=== PATIENT | female | born 1950 | race Caucasian/White ===

== ENCOUNTER 2016-09-07 01:55 | Inpatient (IN) | payer MEDICARE ==
[2016-09-07] VITALS (10 sets, daily range): BP systolic 102–147; BP diastolic 61–80; PULSE 79–104; RESP 16–20; TEMP 96.5–97.8; O2SAT 93–99
[~2016-09-07] VITALS: Ht 170.2 cm; Wt 70.0 kg
[~2016-09-07 01:55] MED LIST: CARI350T19 PO; CARV6.252 PO; CETI10 PO; EZET10 PO; FLEC100 PO; FLON0.053 EACH NARE; GABA300C3 PO; HYDR-3535 PO; HYZA100T4 PO; MECL25 PO; MECL25CH PO; OMEP40CA2; ONDA8TAB8; OXYB5TAB PO; VICT18IN SQ; VITA10002 PO; VITA20003 PO; WARF5; ZOLP10TA3 PO
[2016-09-07] MEDS ORDERED: SODIUM CHLORIDE 0.9% FLUSH 10 ML FLUSH IVF PRN (02:15)
--- NOTE | 2016-09-07 03:06 | RADRPT ---
EXAM DATE/TIME: 09/07/2016 02:15 [place] COMPARISON: CHEST SINGLE AP, April 29, 2014, 9:06. EXTERNAL COMPARISON : [facility] INDICATIONS : Chest pain. MEDICAL HISTORY : Carcinoma, lung. A-fib. SURGICAL HISTORY : None. ENCOUNTER: Initial ACUITY: 2 days PAIN SCORE: 7/10 LOCATION: Bilateral chest FINDINGS: A single view of the chest demonstrates left upper lobe density, unchanged. Blunting of the right cos tophrenic angle likely small pleural effusion and basilar atelectasis. Heart mildly enlarged. The ca rdiomediastinal contours are unremarkable. Osseous structures are intact. CONCLUSION: 1. Stable left upper lobe density. 2. Small right pleural effusion and probable right basal atelectasis. Bartolo Monroe MD on September 07, 2016 at 3:03 Board Certified Radiologist. This report was verified electronically.
[2016-09-07 03:24] LABS: AUTOMATED NEUTROPHIL # 1.6 TH/MM3 (1.8-7.7); BASOPHIL % 1.5 % (0.0-2.0); EOSINOPHIL # 0.1 TH/MM3 (0-0.4); EOSINOPHIL % 3.1 % (0.0-4.0); HEMATOCRIT 39.9 % (35.0-46.0); HEMO FLAGS DIFF FINAL; LYMPH % 25.6 % (9.0-44.0); LYMPHOCYTE # 0.8 TH/MM3 (1.0-4.8); MEAN CELL VOLUME 96.7 FL (80.0-100.0); MEAN CORPUSCULAR HEMOGLOBIN 33.1 PG (27.0-34.0); MEAN CORPUSCULAR HGB CONC 34.2 % (32.0-36.0); MONO % 16.5 % (0.0-8.0); NEUT % 53.3 % (16.0-70.0); PLATELET COUNT 178 TH/MM3 (150-450); RED BLOOD COUNT 4.12 MIL/MM3 (4.00-5.30); RED CELL DISTRIBUTION WIDTH 12.9 % (11.6-17.2); WHITE BLOOD COUNT 3.1 TH/MM3 (4.0-11.0)
[2016-09-07 03:33] LABS: APTT (PATIENT) 35.6 SEC (24.3-30.1); INTERNATIONAL NORMALIZED RATIO 1.7 RATIO; PROTHROMBIN TIME - PATIENT 19.2 SEC (9.8-11.6)
[2016-09-07 04:05] LABS: BICARBONATE 27.6 MEQ/L (21.0-32.0); MAGNESIUM 1.7 MG/DL (1.5-2.5); POTASSIUM 4.8 MEQ/L (3.5-5.1)
[2016-09-07 04:19] LABS: CKMB 6.8 NG/ML (0.5-3.6)
[2016-09-07] MEDS ORDERED: ENOXAPARIN SODIUM 80 MG/0.8 ML SYRINGE SQ ONE (04:45)
[2016-09-07] MEDS ORDERED: NITROGLYCERIN 2% OINT 1 GM PACKET TOP ONE (04:45)
[2016-09-07] MEDS ORDERED: FLEC100T PO (05:46)
[2016-09-07] MEDS ORDERED: WARF-23 PO (05:46)
[2016-09-07] MEDS ORDERED: OMEP40CA2 PO (05:46)
[2016-09-07] MEDS ORDERED: LOSA100T3 PO (05:46)
[2016-09-07] MEDS ORDERED: MONT10TA4 PO (05:46)
[2016-09-07] MEDS ORDERED: OXYB5TAB10 PO (05:46)
[2016-09-07] MEDS ORDERED: GABA300C5 PO (05:46)
[2016-09-07] MEDS ORDERED: CARI350T20 PO (05:46)
[2016-09-07] MEDS ORDERED: CARV6.252 PO (05:46)
[2016-09-07] MEDS ORDERED: ATOR10TA15 PO (05:46)
[2016-09-07] MEDS ORDERED: CETI10 PO (05:46)
[2016-09-07] MEDS ORDERED: VICT18IN SQ (05:46)
[2016-09-07] MEDS ORDERED: OXYC1TAB36 PO (05:46)
[2016-09-07] MEDS ORDERED: FLUT50SP EACH NARE (05:46)
[2016-09-07] MEDS ORDERED: ZOLP10TA3 PO (05:46)
--- NOTE | 2016-09-07 05:47 | PD ---
HPI Chief Complaint: Chest Pain Time Seen by Provider: 02:12 Travel History International Travel<30 days: No Contact w/Intl Traveler<30days: No Traveled to known affect area: No History of Present Illness HPI This is a 66-year-old female with a history of paroxysmal A. fib, COPD, lung cancer, GERD, degenerative disc disease, cardiomyopathy, pleural effusion, who presents today with complaints of chest pain on and off 2 days. The patient reports the pain as sharp and pressure-like. She states it's worse when laying flat. She states that there is some pleuritic nature to the discomfort. There is no reported fevers, chills. Patient denies any chest pain at the time of my examination and states it's worse at night compared to the day. PFSH Past Medical History Atrial Fibrillation: Yes Blood Disorders: No Anxiety: No Depression: No Heart Rhythm Problems: Yes (Hx AFIB) Cancer: Yes (RIGHT / LEFT LUNG - 2002/2012) Cardiac Catheterization: Yes Cardiovascular Problems: Yes (Hx AFIB) High Cholesterol: Yes Chemotherapy: Yes Chest Pain: Yes Congestive Heart Failure: No COPD: Yes (Emphysema) Diabetes: No Diminished Hearing: No Endocrine: No Gastrointestinal Disorders: Yes (REFLUX) Genitourinary: No Hepatitis: No Hiatal Hernia: No Heparin Induced Thrombocytopen: No Hypertension: Yes Immune Disorder: No Implanted Vascular Access Dvce: No Medical other: No Musculoskeletal: Yes (DEGENERATIVE DISK DISEASE, back surgery 5 rods. ) Neurologic: No Psychiatric: No Reproductive: No Respiratory: Yes Immunizations Current: Yes Radiation Therapy: Yes Sleep Apnea: No Thyroid Disease: No Menopausal: Yes : 6 Para: 5 Tubal Ligation: Yes Past Surgical History Abdominal Surgery: Yes (5 C-SECTIONS) AICD: No Cardiac Surgery: No Section: Yes (X 5) Coronary Artery Bypass Graft: No Ear Surgery: No Endocrine Surgery: No Eye Surgery: No Genitourinary Surgery: No Gynecologic Surgery: Yes (FIBRIODS) Joint Replacement: No Neurologic Surgery: No Oral Surgery: Yes (TONSILECTOMY) Pacemaker: No Thoracic Surgery: Yes (RIGHT LOWER LOBECTOMY) Tonsillectomy: Yes Other Surgery: Yes (PORT ) Family History Family Myocardial Infarction: Yes (mother and father) Social History Alcohol Use: Yes (2-3 DRINKS PER DAY) Tobacco Use: No (QUIT 10 YEARS AGO) Substance Use: No Allergies-Medications (Allergen,Severity, Reaction): Coded Allergies: No Known Allergies (Verified , 09/07/16) Reported Meds & Prescriptions Reported Meds & Active Scripts Active Antivert (Meclizine HCl) 25 Mg Tab 25 Mg PO Q8 30 Days Reported Victoza 18 mg/3 ml Multi-Dose Pen (Liraglutide 18 mg/3 ml Multi-Dose Pen) 18 Mg/3 Ml Inj 0.2 Mg SQ DAILY Carvedilol 6.25 mg (Carvedilol) 6.25 Mg Tab 1 Tab PO BID Zetia (Ezetimibe) 10 Mg Tab 10 Mg PO DAILY Omeprazole 40 mg (Omeprazole) 40 Mg Cap Zolpidem Tartrate 10 Mg Tab 10 Mg PO HS Ondansetron Odt (Ondansetron) 8 Mg Tab Vitamin D (Cholecalciferol) 2,000 Unit Tab 2,000 Unit PO Vitamin B12 (Cyanocobalamin) 1,000 Mcg Tab 1,000 Mcg PO BID Carisoprodol 350 Mg Tab 350 Mg PO Q12H Meclizine Hcl (Meclizine HCl) 25 Mg Chw 25 Mg PO Q8H PRN Gabapentin 300 Mg Cap 300 Mg PO TID 1 PO QHS X 3 DAYS THEN 1 PO BID X 3 DAYS THEN 1 PO TID X 3 DAYS THEREAFTER Oxybutynin Chloride 5 Mg Tab 5 Mg PO BID Cetirizine Hcl 10 Mg Tab 10 Mg PO DAILY Flonase (Fluticasone Propionate (Nasal)) 0.05 % Spr 0.05 % EACH NARE DAILY PRN Hyzaar 100-12.5 (Losartan Potassium-Hct 100-12.5) 100 - Tab 1 Tab PO DAILY Lortab 10 mg/325 mg (Hydrocodone/Acetaminophen 10 mg/325 mg) 1 Tab Tab 1 Tab PO Q4 Flecainide Acetate 100 Mg Tab 100 Mg PO Q12 Coumadin (Warfarin Sod) 5 Mg Tab Review of Systems Except as stated in HPI: all other systems reviewed are Neg General / Constitutional: No: Fever, Chills HENT: No: Headaches, Lightheadedness Cardiovascular: Positive: Chest Pain or Discomfort, Irregular Rhythm (history of paroxysmal A. fib), No: Palpitations, Dyspnea on exertion Respiratory: Positive: Cough, Orthopnea, No: Shortness of Breath Gastrointestinal: No: Nausea, Vomiting, Diarrhea Musculoskeletal: No: Myalgias, Arthralgias, Weakness Neurologic: No: Weakness, Dizziness Physical Exam Narrative GENERAL: Well-nourished, well-developed patient. SKIN: Focused skin assessment warm/dry. HEAD: Normocephalic/atraumatic. EYES: No scleral icterus. No injection or drainage. NECK: Supple, trachea midline. No JVD . CARDIOVASCULAR: Regular rate and rhythm without murmurs, gallops, or rubs. RESPIRATORY: Slightly decreased breath sounds at the bases, worse on the right than on the left. No wheezes or Rales. GASTROINTESTINAL: Abdomen soft, non-tender, nondistended. MUSCULOSKELETAL: No cyanosis, or edema. NEUROLOGICAL: Awake and alert. Cranial nerves II through XII intact. Motor grossly within normal limits. Five out of 5 muscle strength in all muscle groups. Normal speech. Data Data Last Documented VS Vital Signs Date Time Temp Pulse Resp B/P Pulse Ox O2 Delivery O2 Flow Rate FiO2 09/07/16 02:12 Room Air 09/07/16 01:58 97.6 104 20 147/74 99 Orders Electrocardiogram (09/07/16 02:12) Basic Metabolic Panel (Bmp) (09/07/16 02:12) Ckmb (Isoenzyme) Profile (09/07/16 02:12) Complete Blood Count With Diff (09/07/16 02:12) Magnesium (Mg) (09/07/16 02:12) Prothrombin Time / Inr (Pt) (09/07/16 02:12) Act Partial Throm Time (Ptt) (09/07/16 02:12) Troponin I (09/07/16 02:12) Chest, Single Ap (09/07/16 02:12) Ecg Monitoring (09/07/16 02:12) Bilateral Bp Monitoring (09/07/16 02:12) Iv Access Insert/Monitor (09/07/16 02:12) Oximetry (09/07/16 02:12) Oxygen Administration (09/07/16 02:12) Sodium Chloride 0.9% Flush (Ns Flush) (09/07/16 02:15) CKMB (09/07/16 02:23) CKMB% (09/07/16 02:23) Nitroglycerin 2% Oint (Nitroglycerin 2% (09/07/16 04:45) Enoxaparin Inj (Lovenox Inj) (09/07/16 04:45) Labs Laboratory Tests Test 09/07/16 02:23 White Blood Count 3.1 TH/MM3 Red Blood Count 4.12 MIL/MM3 Hemoglobin 13.6 GM/DL Hematocrit 39.9 % Mean Corpuscular Volume 96.7 FL Mean Corpuscular Hemoglobin 33.1 PG Mean Corpuscular Hemoglobin 34.2 % Concent Red Cell Distribution Width 12.9 % Platelet Count 178 TH/MM3 Mean Platelet Volume 7.8 FL Neutrophils (%) (Auto) 53.3 % Lymphocytes (%) (Auto) 25.6 % Monocytes (%) (Auto) 16.5 % Eosinophils (%) (Auto) 3.1 % Basophils (%) (Auto) 1.5 % Neutrophils # (Auto) 1.6 TH/MM3 Lymphocytes # (Auto) 0.8 TH/MM3 Monocytes # (Auto) 0.5 TH/MM3 Eosinophils # (Auto) 0.1 TH/MM3 Basophils # (Auto) 0.0 TH/MM3 CBC Comment DIFF FINAL Differential Comment Prothrombin Time 19.2 SEC Prothromb Time International 1.7 RATIO Ratio Activated Partial 35.6 SEC Thromboplast Time Sodium Level 133 MEQ/L Potassium Level 4.8 MEQ/L Chloride Level 96 MEQ/L Carbon Dioxide Level 27.6 MEQ/L Anion Gap 9 MEQ/L Blood Urea Nitrogen 14 MG/DL Creatinine 0.92 MG/DL Estimat Glomerular Filtration 61 ML/MIN Rate Random Glucose 94 MG/DL Calcium Level 9.1 MG/DL Magnesium Level 1.7 MG/DL Total Creatine Kinase 311 U/L Creatine Kinase MB 6.8 NG/ML Creatine Kinase MB % 2.2 % Troponin I 0.11 NG/ML [facility] Medical Decision Making Medical Screen Exam Complete: Yes Emergency Medical Condition: Yes Interpretation(s) Last 24 hours Impressions Chest X-Ray 09/07/16211 Signed Impressions: Service Date/Time: Wednesday, September 07, 2016 02:15 - CONCLUSION: 1. Stable left upper lobe density. 2. Small right pleural effusion and probable right basal atelectasis. Bartolo Monroe MD Differential Diagnosis ACS versus musculoskeletal versus GERD versus CHF Narrative Course 66-year-old female with a history of lung cancer, hypertension, questionable cardiomyopathy, paroxysmal A. fib, who presents intermittent chest pain 2 days. Patient reports it's worse when lying flat. She states it somewhat relieved when leaning forward. She is pain-free at the time of my examination. EKG shows sinus rhythm with no acute ST elevation. There is questionable ST depression in the leads V1 through V3. Troponin and CK are elevated. Chest x- ray shows a right small pleural effusion with a stable lung nodule. The patient has 1 inch of nitroglycerin paste on her chest. She has been written for Lovenox as her INR subtherapeutic at 1.7. Case was discussed with Mekhi Kothari for the [facility] hospitalist and reported that this could be a non- STEMI. This could also be related to her underlying lung disease. She'll be ruled out however will continue on the nitroglycerin. Diagnosis Primary Impression: Atypical chest pain Additional Impressions: elevated troponin, possible non-ST elevation [place] Paroxysmal a-fib Subtherapeutic international normalized ratio (INR) Emil Lamb MD Sep 07, 2016 05:47
[2016-09-07] MEDS ORDERED: ACETAMINOPHEN 325 MG TAB PO PRN (06:30)
[2016-09-07] MEDS ORDERED: WARFARIN SOD 5 MG TAB PO ONE (06:30)
[2016-09-07] MEDS ORDERED: SODIUM CHLORIDE 0.9% FLUSH 10 ML FLUSH IV FLUSH PRN (06:30)
[2016-09-07] MEDS ORDERED: NALOXONE HCL 0.4 MG/ML AMP IV PRN (06:30)
[2016-09-07] MEDS ORDERED: SENNOSIDES 8.6 MG TAB PO PRN (06:30)
[2016-09-07] MEDS ORDERED: ONDANSETRON HCL 4 MG/2 ML VIAL IVP PRN (06:30)
[2016-09-07 06:44] LABS: CREATINE KINASE 160 U/L (26-192)
[2016-09-07 06:56] LABS: CKMB 5.7 NG/ML (0.5-3.6)
--- NOTE | 2016-09-07 07:40 | PD.CONS ---
HPI Service CV Consult Requested By Reason for Consult chest pain Primary Care Physician Julia Briggs History of Present Illness Here with HTN, hyperlipidemia, diabetes type 2 and former smoker admitted for several day of intermittent retrosternal chest pressure. It does not radiate. It is associated with shortness of breath, nausea and diaphoresis. One year ago she had a cardiac workup with Dr. Alex with negative SPECT. Review of Systems Consitutional: DENIES: Fatigue, Fever, Chills, Weight gain, Weight loss Eyes: DENIES: Amaurosis [place], Change in vision HEENT: DENIES: Lightheadedness, Change in hearing Respiratory: DENIES: See HPI, Cough, Snoring, Shortness of breath, Wheezing, Sputum production Cardiovascular: COMPLAINS OF: See HPI Gastrointestinal: DENIES: Nausea, Vomiting, Change in bowel habits, Reflux, Bloody stools, Melena Genitourinary: DENIES: Urinary incontinence, Difficulty voiding Integumentary: DENIES: Rash Neurologic: DENIES: Tingling or numbness, Memory problems, Poor Balance, Stroke symptoms Musculoskeletal: DENIES: Joint pain, Muscle pain, Limited range of motion, Back pain Psychiatric: DENIES: Anxiety, Depression, Sleep disturbances Hematologic: DENIES: Bruising tendencies, Bleeding tendencies Endocrine: DENIES: Weight gain, Weight loss, Thyroid disease Past Family Social History Allergies: Coded Allergies: No Known Allergies (Verified , 09/07/16) Past Medical History see HPI degenerative disc disease GERD A-fib Past Surgical History multiple sections back surgery Reported Medications Reported Meds & Active Scripts Active Reported Zolpidem (Zolpidem Tartrate) 10 Mg Tab 10 Mg PO HS PRN Warfarin 5 Mg Tab 5 Mg PO DAILY Victoza Inj (Liraglutide Inj) 18 Mg/3 Ml Pen 1.8 Mg SQ DAILY Oxycodone-Acetaminophen 10-325 mg Tab 1 Tab PO Q4H PRN Ditropan (Oxybutynin Chloride) 5 Mg Tab 5 Mg PO Q12HR Omeprazole 40 Mg Cap 40 Mg PO DAILY Montelukast (Montelukast Sodium) 10 Mg Tab 10 Mg PO HS Losartan-Hydrochlorothiazide 100-12.5 Mg Tab 1 Tab PO DAILY Gabapentin 300 Mg Cap 300 Mg PO TID Fluticasone Nasal [place] 50 Mcg/Act Naspr 50 Mcg EACH NARE BID 50 mcg/spray Flecainide (Flecainide Acetate) 100 Mg Tab 100 Mg PO BID Cetirizine (Cetirizine HCl) 10 Mg Tab 10 Mg PO DAILY Carvedilol 6.25 Mg Tab 6.25 Mg PO BID Carisoprodol 350 Mg Tab 350 Mg PO BID PRN Atorvastatin (Atorvastatin Calcium) 10 Mg Tab 10 Mg PO HS Active Ordered Medications Current Medications Medications (Trade) Dose Ordered Sig/Felix Route Start Time Stop Time Status Last Admin (NS Flush) 2 ml UNSCH PRN IV FLUSH 09/07/16 06:30 (NS Flush) 2 ml BID IV FLUSH 09/07/16 09:00 (Tylenol) 650 mg Q4H PRN PO 09/07/16 06:30 (Zofran Inj) 4 mg Q6H PRN IVP 09/07/16 06:30 (Senokot) 17.2 mg Q12H PRN PO 09/07/16 06:30 (Narcan Inj) 0.4 mg UNSCH PRN IV 09/07/16 06:30 (Nitroglycerin 2% Oint) 1 inch Q6HR TOPICAL 09/07/16 12:00 Family History noncontributory Social History quit smoking many years ago 2-3 alcoholic drinks daily no substance abuse Physical Exam Vital Signs Vital Signs Date Time Temp Pulse Resp B/P Pulse Ox O2 Delivery O2 Flow Rate FiO2 09/07/16 07:00 105/64 Room Air 09/07/16 06:00 86 20 109/70 95 Room Air 09/07/16 04:00 88 16 102/61 93 Room Air 09/07/16 02:12 Room Air 09/07/16 01:58 97.6 104 20 147/74 99 Room Air Physical Exam GENERAL: Well-nourished, well-developed patient in no apparent distress. NECK: No JVD. No carotid bruit. CARDIOVASCULAR: Regular rate and rhythm. S1/S2 no murmur, rub, or gallop. RESPIRATORY: No accessory muscle use. Clear to auscultation. Breath sounds equal bilaterally. GASTROINTESTINAL: Abdomen soft, non-tender, nondistended. MUSCULOSKELETAL: Extremities without clubbing, cyanosis, or edema. Laboratory Laboratory Tests Test 09/07/16 09/07/16 02:23 06:00 White Blood Count 3.1 Red Blood Count 4.12 Hemoglobin 13.6 Hematocrit 39.9 Mean Corpuscular Volume 96.7 Mean Corpuscular Hemoglobin 33.1 Mean Corpuscular Hemoglobin 34.2 Concent Red Cell Distribution Width 12.9 Platelet Count 178 Mean Platelet Volume 7.8 Neutrophils (%) (Auto) 53.3 Lymphocytes (%) (Auto) 25.6 Monocytes (%) (Auto) 16.5 Eosinophils (%) (Auto) 3.1 Basophils (%) (Auto) 1.5 Neutrophils # (Auto) 1.6 Lymphocytes # (Auto) 0.8 Monocytes # (Auto) 0.5 Eosinophils # (Auto) 0.1 Basophils # (Auto) 0.0 CBC Comment DIFF FINAL Differential Comment Prothrombin Time 19.2 Prothromb Time International 1.7 Ratio Activated Partial 35.6 Thromboplast Time Sodium Level 133 Potassium Level 4.8 Chloride Level 96 Carbon Dioxide Level 27.6 Anion Gap 9 Blood Urea Nitrogen 14 Creatinine 0.92 Estimat Glomerular Filtration 61 Rate Random Glucose 94 Calcium Level 9.1 Magnesium Level 1.7 Total Creatine Kinase 311 160 Creatine Kinase MB 6.8 5.7 Creatine Kinase MB % 2.2 Troponin I 0.11 0.17 Result Diagram: 09/07/1622209/07/16222 Assessment and Plan Problem List: (1) NSTEMI (non-ST elevated myocardial infarction) Assessment and Plan Plan for coronary angiogram this afternoon. She requires sedation and a consult for anesthesia has been placed. Further recommendation will depend upon the outcome of her heart cath Júnior Tello Sep 07, 2016 07:40
[2016-09-07] MEDS ORDERED: ASPIRIN 325 MG TAB PO SCH (07:45)
[2016-09-07] MEDS ORDERED: MIDAZOLAM HCL 2 MG/2 ML VIAL IV SCH (07:45)
[2016-09-07] MEDS ORDERED: SODIUM CHLOR 0.9% 1000 ML INJ 1,000 ML IV SCH (08:00)
--- NOTE | 2016-09-07 08:53 | MH ---
cc: [facility] DATE OF ADMISSION: 09/07/2016 DATE OF 04/03/1960 CHIEF COMPLAINT Chest pain. TRAVEL IN THE LAST 30 DAYS None. HISTORY OF PRESENT ILLNESS This is a pleasant talkative 66-year-old white female who was in her usual state of health up until the last three days she has noted some pressure-type midsternal chest pain off and on which does radiate into the right arm. She states that the pain seems to be worse at night and she does note some sharp stabbing sensations off and on. The patient states that yesterday the pain was much easier, she went to bed and was awakened at 1:30 with the pain becoming more intense. The patient came to the emergency room for evaluation. She is alert, oriented a fairly good historian. She is anxious over any heart problems and any further testing. PAST MEDICAL HISTORY 1. Paroxysmal atrial fibrillation. 2. Anxiety. 3. Degenerative disk disease. 4. GERD. 5. Scoliosis. 6. Hyperlipidemia. 7. Previous lung cancer in 2002, right lower lobe. 8. 2012 left lung aorta. 9. Cancer. She state these were different kinds. 10. Cardiovascular disease. 11. COPD. PAST SURGICAL HISTORY 1. Five C-sections. 2. Fibroid tumors removed. 3. Tonsillectomy. 4. Right lower lobe lobectomy. 5. IV Mediports. 6. Radiation to the left lung and aorta. 7. Radiation to the right lower lobe, two different occasions. 8. Recent back surgery, L2 through L5, five rods. ALLERGIES None known. REPORTED MEDICATIONS 1. Carvedilol. 2. Zetia. 3. Omeprazole. 4. Meclizine. 5. Victoza. 6. Vitamins. 7. Zofran. 8. Zolpidem. 9. Gabapentin. 10. Zyrtec. 11. Flonase. 12. Hyzaar. 13. Lortab. 14. Flecainide. 15. Coumadin. 16. Oxybutynin. SOCIAL HISTORY The patient is single, lives in a duplex with a male friend. She smoked for many years but quit approximately 10 years ago. She is a daily alcohol consumer, 2-3 drinks per day with some vodka. She did drink yesterday. REVIEW OF SYSTEMS A 12-point review was obtained. Positives are noted in the HPI which include her chest, some nausea. The patient is actively short of breath requiring O2. Anxiety. Other systems are negative or unremarkable for now. PHYSICAL EXAMINATION VITAL SIGNS: Temperature is 97.6, pulse 86, respirations 20, blood pressure 109/70, has been as high as 147/74 when she came in and her heart rate when she came in was 104. O2 sat 95 on room air, has been as low as 93 on room air. PHYSICAL EXAMINATION GENERAL: Mild obese white female, looks to be her stated age, resting on the stretcher. She is actively having some shortness of breath and some back pain. The patient has had recent back surgery, L2 through L5 and she is still in her recovery phase, she states. SKIN: [place], warm and dry. Turgor good. HEENT: Atraumatic, normocephalic. PERRLA. Mucous membranes are moist. No scleral icterus. NECK: Supple. HEART SOUNDS: S1 and S2. Regular rate and rhythm. No murmurs, rubs or gallops appreciated. PULMONARY: Generalized diminished breath sounds. She has decreased breath sounds in her upper lungs on the left side and decreased breath sounds in her right mid to lower base. Part of that right lower lung has been removed. ABDOMEN: Round, soft, nontender, nondistended. Active bowel sounds in all four quadrants. MUSCULOSKELETAL: She moves all of her extremities with purpose, can overcome resistance. She has no edema. Her pulses are intact. NEUROLOGIC: She is alert, oriented, a fairly good historian. Anxious. Speech is clear. She is very talkative. PSYCHOLOGICAL: Mood and affect are with anxiety. DIAGNOSTIC DATA WBC count 3.1, RBC 4.12, hemoglobin 13.6, hematocrit 39.9, platelet count 178. Abnormal monocyte auto percent count 16.5, lymphocyte number 0.8. Chemistry: Sodium 133, potassium 4.8, chloride 96, carbon dioxide 27.6. Anion gap 9, BUN 14, creatinine 0.92, GFR 61, random glucose 94. Calcium 9.1, total creatinine kinase 311 and 160. CKMB initially 6.8 and 5.7. MB percentage 2.2. Troponins 0.11 and 0.17. PT/INR 1.7. IMAGING STUDIES Stable left upper lobe density, small right pleural effusion and probable right basilar atelectasis. ASSESSMENT AND PLAN 1. Chest pain. Rule out NH with elevated troponins. 2. Cardiovascular disease. 3. GERD. 4. History of paroxysmal atrial fibrillation. 5. Degenerative disk disease. 6. COPD with dyspnea. 7. Nausea. PLAN Our plan is to admit inpatient status. Consult Cardiology for his expert opinion. He has already seen the patient this morning and is tentatively looking at a heart cath sometime this afternoon. We are placing the patient on oxygen secondary to her active shortness of breath. In the ER the patient has had initial labs drawn. She has had nitroglycerin ointment placed on her, DVT prophylaxis with Lovenox. The patient's Coumadin therapy is subtherapeutic so we need to cover her with some Lovenox. P.r.n. medications. Reconcile her medications. The patient will need to be n.p.o. pending some heart studies. Patient expressed to Cardiology of her extreme nervousness during any type of cardiac procedures. Anesthesia has been consulted to assist. The patient will be maintained on bed rest. Vital signs will be q. 4 and more often if warranted. We will finish her troponin studies and treat her chest pain aggressively. The patient will also be on aspirin and we will start her on IV Pepcid for now. The patient is full code, full aggressive care. She also notes that she has multiple children out of town; no one is local. She has been encouraged to let her family know that she is in the hospital and that she is pending some cardiac procedures. We will follow Dictated by: CAITLYN Gonzalez MD ADEEL Garner/SHARYN /7:54 AM /8:27 AM
[2016-09-07] MEDS ORDERED: DEXT 5%-NACL 0.9% 500 ML INJ 500 ML IV SCH (09:00)
[2016-09-07] MEDS ORDERED: ZOLPIDEM TARTRATE 10 MG TAB PO PRN (09:15)
[2016-09-07] MEDS ORDERED: HYDROmorphone HCL PF 1 MG/ML VIAL IV PUSH ONE (09:30)
[2016-09-07] MEDS: SODIUM CHLORIDE 0.9% FLUSH 10 ML FLUSH IV FLUSH SCH ×2 (09:40→21:00)
[2016-09-07] MEDS: LORazepam 0.5 MG TAB PO PRN (09:41)
[2016-09-07] MEDS: PANTOPRAZOLE SOD 40 MG DELAYED RELEASE TAB PO SCH (09:44)
[2016-09-07] MEDS ORDERED: GLYC2SUP RECTAL (10:09)
--- NOTE | 2016-09-07 10:09 | HHI.PR ---
Vitals/Results Vital Signs Vital Signs Date Time Temp Pulse Resp B/P Pulse Ox O2 Delivery O2 Flow Rate FiO2 09/07/16 07:00 87 18 105/64 98 Nasal Cannula 2 09/07/16 06:00 86 20 109/70 95 Room Air 09/07/16 04:00 88 16 102/61 93 Room Air 09/07/16 02:12 Room Air 09/07/16 01:58 97.6 104 20 147/74 99 Room Air CBC/BMP: 09/07/16 0223 09/07/16 0223 Lab Results Laboratory Tests Test 09/07/16 09/07/16 02:23 06:00 White Blood Count 3.1 TH/MM3 Red Blood Count 4.12 MIL/MM3 Hemoglobin 13.6 GM/DL Hematocrit 39.9 % Mean Corpuscular Volume 96.7 FL Mean Corpuscular Hemoglobin 33.1 PG Mean Corpuscular Hemoglobin 34.2 % Concent Red Cell Distribution Width 12.9 % Platelet Count 178 TH/MM3 Mean Platelet Volume 7.8 FL Neutrophils (%) (Auto) 53.3 % Lymphocytes (%) (Auto) 25.6 % Monocytes (%) (Auto) 16.5 % Eosinophils (%) (Auto) 3.1 % Basophils (%) (Auto) 1.5 % Neutrophils # (Auto) 1.6 TH/MM3 Lymphocytes # (Auto) 0.8 TH/MM3 Monocytes # (Auto) 0.5 TH/MM3 Eosinophils # (Auto) 0.1 TH/MM3 Basophils # (Auto) 0.0 TH/MM3 CBC Comment DIFF FINAL Differential Comment Prothrombin Time 19.2 SEC Prothromb Time International 1.7 RATIO Ratio Activated Partial 35.6 SEC Thromboplast Time Sodium Level 133 MEQ/L Potassium Level 4.8 MEQ/L Chloride Level 96 MEQ/L Carbon Dioxide Level 27.6 MEQ/L Anion Gap 9 MEQ/L Blood Urea Nitrogen 14 MG/DL Creatinine 0.92 MG/DL Estimat Glomerular Filtration 61 ML/MIN Rate Random Glucose 94 MG/DL Calcium Level 9.1 MG/DL Magnesium Level 1.7 MG/DL Total Creatine Kinase 311 U/L 160 U/L Creatine Kinase MB 6.8 NG/ML 5.7 NG/ML Creatine Kinase MB % 2.2 % Troponin I 0.11 NG/ML 0.17 NG/ML Assessment/Plan Assessment/Plan Patient seen and examined Please refer to admission H & P for details NSTEMI anxiety h/o HTN, HLD and DM Appreciate CArdiology input plan for cardiac cath today NPO i/v fluids changed to D5NS @ 30cc /hr prn Ativan reume appropriate home meds discussed with patirnt discussed with nursing staff discussed with Becki Beavers MD Sep 07, 2016 10:09
[2016-09-07] MEDS: FLUTICASONE PROPIONATE 50 MCG/ACT 16 GM NASAL SPRAY EACH NARE SCH ×2 (11:29→21:00)
--- NOTE | 2016-09-07 11:31 | EKG ---
Date Performed: 09/07/2016 Time Performed: 06:02:47 PTAGE: 66 years EKG: Sinus rhythm LOW QRS VOLTAGE IN EXTREMITY LEADS MINIMAL ST DEPRESSION BORDERLINE ECG PREVIOUS TRACING : 09/07/2016 02.15 DOCTOR: Lorenzo Iglesias Interpretating Date/Time 09/07/2016 11:30:23
--- NOTE | 2016-09-07 11:34 | EKG ---
Date Performed: 09/07/2016 Time Performed: 02:15:13 PTAGE: 66 years EKG: Sinus rhythm LOW QRS VOLTAGE IN EXTREMITY LEADS MODERATE ST DEPRESSION ABNORMAL ECG PREVIOUS TRACING : 07/27/2014 06.27 DOCTOR: Lorenzo Iglesias Interpretating Date/Time 09/07/2016 11:32:54
[2016-09-07] MEDS ORDERED: DEXTROSE 50% IN WATER 50 ML VIAL(D50) IV PUSH PRN (12:45)
[2016-09-07] MEDS ORDERED: GLUCAGON 1 MG/ML VIAL OTHER PRN (12:45)
[2016-09-07] MEDS: NITROGLYCERIN 2% OINT 1 GM PACKET TOPICAL SCH ×2 (12:52→18:27)
[2016-09-07] MEDS ORDERED: PHYTONADIONE 5 MG TAB PO ONE (13:30)
[2016-09-07] MEDS ORDERED: GLYCERIN ADULT 2 GM SUPP RECTAL ONE (13:45)
[2016-09-07] MEDS: GABAPENTIN 300 MG CAP PO SCH ×2 (14:11→18:27)
[2016-09-07] MEDS: INSULIN NovoLIN REGULAR SUPPLEMENTAL SCALE SQ SCH ×2 (16:00→21:00)
[2016-09-07] MEDS: oxyCODONE/ACETAMINOPHEN 10 MG/325 MG TAB PO PRN ×2 (16:16→21:41)
[2016-09-07] MEDS ORDERED: ATORVASTATIN 10 MG TAB PO SCH (21:00)
[2016-09-07] MEDS ORDERED: FLECAINIDE ACETATE 100 MG TAB PO SCH (21:00)
[2016-09-07] MEDS ORDERED: MONTELUKAST SODIUM 10 MG TAB PO SCH (21:00)
[2016-09-07] MEDS: OXYBUTYNIN CHLORIDE 5 MG TAB PO SCH (21:41)
[2016-09-08] VITALS (13 sets, daily range): BP systolic 96–117; BP diastolic 63–84; PULSE 57–97; RESP 18; TEMP 97.8–97.9; O2SAT 96–100
[2016-09-08] MEDS ORDERED: DEXT 5%-NACL 0.9% 1000 ML INJ 1,000 ML IV SCH
[2016-09-08] MEDS: LORazepam 0.5 MG TAB PO PRN (00:13)
[2016-09-08] MEDS: NITROGLYCERIN 2% OINT 1 GM PACKET TOPICAL SCH ×4 (00:13→18:37)
[2016-09-08] MEDS: INSULIN NovoLIN REGULAR SUPPLEMENTAL SCALE SQ SCH ×3 (05:52→16:00)
--- NOTE | 2016-09-08 07:23 | PD.CARD.PN ---
Subjective Subjective Remarks Feels well. No chest pain. Mild back pain Objective Vital Signs / I&O Vital Signs Date Time Temp Pulse Resp B/P Pulse Ox O2 Delivery O2 Flow Rate FiO2 09/08/16 03:11 97.8 82 18 96/63 100 09/08/16 00:45 87 09/07/16 23:20 97.8 83 113/69 98 09/07/16 19:58 98 Nasal Cannula 2.00 09/07/16 19:56 97.6 91 18 103/66 98 09/07/16 16:52 96.5 79 18 106/80 99 09/07/16 12:34 86 09/07/16 11:13 96.7 90 18 134/75 96 Physical Exam Lungs clear. RRR Laboratory Laboratory Tests Test 09/07/16 12:30 Troponin I 0.19 NG/ML Assessment and Plan Problem List: (1) NSTEMI (non-ST elevated myocardial infarction) Assessment and Plan For cath today Tucker High MD Sep 08, 2016 07:23
[2016-09-08 07:39] LABS: HEMATOCRIT 34.2 % (35.0-46.0); MEAN CORPUSCULAR HEMOGLOBIN 34.6 PG (27.0-34.0); MEAN CORPUSCULAR HGB CONC 35.7 % (32.0-36.0); PLATELET COUNT 182 TH/MM3 (150-450); RED BLOOD COUNT 3.52 MIL/MM3 (4.00-5.30); RED CELL DISTRIBUTION WIDTH 13.2 % (11.6-17.2)
[2016-09-08] MEDS ORDERED: fentaNYL CITRATE 250 MCG/5 ML AMP ONE (08:07)
[2016-09-08] MEDS ORDERED: MIDAZOLAM HCL 5 MG/5 ML VIAL ONE (08:08)
[2016-09-08 08:10] LABS: HEMO FLAGS AUTO DIFF
[2016-09-08] MEDS ORDERED: HEPARIN-NS/PF INJ 500 ML ONE (08:11)
[2016-09-08 08:12] LABS: BICARBONATE 30.6 MEQ/L (21.0-32.0); POTASSIUM 3.6 MEQ/L (3.5-5.1)
[2016-09-08] MEDS ORDERED: IOHEXOL 350 MG/ML 100 ML BTL (for Cath Lab) OTHER ONE (08:45)
[2016-09-08] MEDS ORDERED: ONDANSETRON HCL 4 MG/2 ML VIAL IV PRN (09:00)
[2016-09-08] MEDS ORDERED: BACITRACIN OINT 0.9 GM PKT TOP ONE (09:00)
[2016-09-08] MEDS ORDERED: LIDOCAINE HCL 1% 50 ML VIAL INFIL PRN (09:00)
[2016-09-08] MEDS ORDERED: MISC INFORMATION XX ONE (09:00)
[2016-09-08] MEDS ORDERED: ATROPINE SULFATE 1 MG/ML VIAL IV PRN (09:00)
[2016-09-08] MEDS ORDERED: LORazepam 2 MG/ML VIAL IV PRN (09:00)
[2016-09-08] MEDS ORDERED: SODIUM CHLOR 0.9% 250 ML INJ 250 ML IV PRN (09:00)
--- NOTE | 2016-09-08 09:27 | HHI.PR ---
Subjective Remarks Awake No chest pain No shortness of breath Resting in bed Afebrile Objective Objective Results - Vital Signs Date Time Temp Pulse Resp B/P Pulse Ox O2 Delivery O2 Flow Rate FiO2 09/08/16 03:11 97.8 82 18 96/63 100 09/08/16 00:45 87 09/07/16 23:20 97.8 83 113/69 98 09/07/16 19:58 98 Nasal Cannula 2.00 09/07/16 19:56 97.6 91 18 103/66 98 09/07/16 16:52 96.5 79 18 106/80 99 09/07/16 12:34 86 09/07/16 11:13 96.7 90 18 134/75 96 Result Diagram: 09/08/16 0709/08/16 0701 ROS General: Fatigue (easily but no chest pain for now), Other (10 point ROS done, mild chronic low back pain from being in the bed, otherwise systems unremarkable ) Cardiac: Chest Pain (none now) Neuro/MS: Other (generalized chronic back pain) Physical Exam Physical Exam PHYSICAL EXAMINATION GENERAL: This is a well-developed, well-nourished female who appears to be in no acute distress. She is alert and awake, nothing by mouth for heart procedure HEAD: Normocephalic without any lesion or mass noted. Facial features appear symmetric. OROPHARYNGEAL: Oropharynx without erythema or edema. NECK: Supple. No nuchal rigidity or lymphadenopathy. Trachea midline without deviation. CARDIAC: Regular rhythm, regular rate, S1 and S2 are heard. Murmur []; no gallops or rubs. LUNGS: Clear to auscultation bilaterally. no wheeze, no rhonchi ABDOMEN: Soft, nontender, no organomegaly or masses. Bowel sounds are heard in all four quadrants. No rebound. No guarding. EXTREMITIES: no edema. Pulses equal bilateral. [] cyanosis. NEUROLOGICAL: Patient mood and affect appropriate. No focal deficit SKIN:Warm and moist Objective Remarks Abdomen okay I guess. No chest pain today A/P Assessment and Plan 1. Chest pain. Rule out OH with elevated troponins. 2. Cardiovascular disease. 3. GERD. 4. History of paroxysmal atrial fibrillation. 5. Degenerative disk disease. 6. COPD with dyspnea. 7. Nausea. Vital signs reviewed, normal trends Labs reviewed, neutropenia noted patient has history of cancer as well as treatment. No further chest pain today, non-STEMI. Cardiology consult, appreciate. Plan for heart catheter today. Patient is nothing by mouth No shortness of breath, O2 at 2 L when necessary PUD prophylaxis for GERD, Protonix No further complaints of nausea Telemetry monitoring sinus rhythm, heart rate controlled Degenerative disc disease with chronic pain. Mild this a.m. the patient has been in the bed, and less mobile. Medication management with by mouth meds Anxiety, Ativan when necessary, Discussed With: Nurse, Family (patient), Other (Dr. Garcia, seen on her behalf) Clarissa Cordon Sep 08, 2016 09:27
[2016-09-08 09:55] LABS: BANDS 6 % (0-6); EOSINOPHILS 2 % (0-4); NEUTROPHIL # MANUAL DIFF 1.6 TH/MM3 (1.8-7.7); POLYS (SEG NEUTROPHILS) 46 % (16-70); WBC DIFF SAMPLE 100
[2016-09-08 09:56] LABS: PLATELET ESTIMATE SMEAR NORMAL (NORMAL); PLATELET MORPHOLOGY NORMAL (NORMAL); SCAN/DIFF FINAL DIFF MANUAL
[2016-09-08] MEDS ORDERED: METOCLOPRAMIDE HCL 10 MG/2 ML VIAL IV PRN (10:00)
--- NOTE | 2016-09-08 10:50 | MA ---
cc: JEAN PAUL BATES MD DATE 09/08/2016 PROCEDURE PERFORMED Catheterization PROCEDURAL STATEMENT The patient was prepped and draped in the usual fashion. A six sheath was inserted percutaneously into the right femoral artery. Coronary angiography was accomplished eventually on the left side with an XB 3.0 guide catheter, Vincent 3.54 and 4/5 catheters were not able to cannulate the left main due to the rather odd take off of the left main. The right coronary was cannulated with a standard right 4 diagnostic and LV gram was done with a pigtail catheter. RESULTS Aortic pressure was 90/60. Left ventricular end-diastolic pressure was 20. There was no gradient across the aortic valve. CORONARY ANGIOGRAPHY The left main coronary demonstrated 75% stenosis at its origin. The left anterior descending artery demonstrated some mild luminal irregularities with approximately 50% stenosis noted in the midportion of the artery. The distal portion of the artery was free from disease. The left circumflex is a rather large system. A 50% stenosis was noted in the midportion and also at the takeoff of the first obtuse marginal branch. The distal portion of the obtuse marginal and circumflex were free from disease and fairly good sized vessels. The right coronary was anatomically dominant. A high-grade stenosis was present in its proximal portion of approximately 90% or greater with BEBA-II flow noted throughout the artery. The left ventricle was normal in size. Left ventricular ejection fraction is estimated at approximately 50-55% lesions. CONCLUSION This patient demonstrates coronary artery disease as described above. She would appear to be a candidate for bypass grafting to the left anterior descending and right coronaries, as well as left circumflex artery. MD SUZETTE Mane/MITCH /8:56 AM /10:39 AM
[2016-09-08] MEDS: oxyCODONE/ACETAMINOPHEN 10 MG/325 MG TAB PO PRN ×2 (11:37→17:00)
[2016-09-08] MEDS: PANTOPRAZOLE SOD 40 MG DELAYED RELEASE TAB PO SCH (11:37)
[2016-09-08] MEDS: GABAPENTIN 300 MG CAP PO SCH ×2 (11:38→18:37)
[2016-09-08] MEDS: OXYBUTYNIN CHLORIDE 5 MG TAB PO SCH (11:38)
[2016-09-08] MEDS: SODIUM CHLORIDE 0.9% FLUSH 10 ML FLUSH IV FLUSH SCH (11:54)
--- NOTE | 2016-09-08 12:02 | EKG ---
Date Performed: 09/07/2016 Time Performed: 11:52:33 PTAGE: 66 years EKG: Sinus rhythm WITH FIRST DEGREE AV BLOCK LOW QRS VOLTAGE IN EXTREMITY LEADS NONSPECIFIC T-WAVE ABNORMALITY ABNORMA L ECG PREVIOUS TRACING : 09/07/2016 06.02 DOCTOR: Carlo Steiner Interpretating Date/Time 09/08/2016 11:56:13
[2016-09-08] MEDS ORDERED: SODIUM CHLORIDE 0.9% FLUSH 10 ML FLUSH IV FLUSH PRN (17:30)
[2016-09-08] MEDS ORDERED: CEFAZOLIN INJ 500 MG in SODIUM CHLORIDE 0.9% IRR BTL 500 ML IRRIGATION SCH (17:30)
[2016-09-08] MEDS ORDERED: PAPAVERINE INJ 60 MG, NITROGLYCERIN INJ 100 MCG, DILTIAZEM INJ 100 MG in SODIUM CHLORID... IRRIGATION SCH (17:30)
[2016-09-08] MEDS ORDERED: INSULIN REGULAR (IV INFUSION) 100 UNITS in SODIUM CHLORIDE 0.9% INJ 100 ML IV SCH (17:30)
[2016-09-08] MEDS ORDERED: ceFAZolin 2 GM PREMIX 50 ML IV SCH (17:30)
[2016-09-08] MEDS ORDERED: METOPROLOL TARTRATE 25 MG TAB PO SCH (17:30)
[2016-09-08] MEDS ORDERED: CHLORHEXIDINE GLUCONATE 4% SOLN 120 ML BTL TOPICAL SCH (17:30)
[2016-09-08] MEDS ORDERED: GLYCERIN ADULT 2 GM SUPP RECTAL PRN (18:15)
[2016-09-08] MEDS ORDERED: SODIUM CHLORIDE 0.9% FLUSH 10 ML FLUSH IV FLUSH SCH (21:00)
--- NOTE | 2016-09-09 08:34 | MB ---
cc: MAYLIN DAVILA MD DATE OF CONSULTATION: 09/08/2016 DATE OF : 04/03/1960 HISTORY OF PRESENT ILLNESS: The patient is a 66-year-old female of Dr. Gloria Malone. She had seen Dr. Alex in the past, Dr. Hess. She presented to the emergency room with chest pressure, mid sternal that radiated into her right arm. Her EKG on admission showed sinus rhythm with some ST depression in her anterior lateral leads. Her troponins were 0.91. She presented as a non STEMI. She underwent cardiac cath by Dr. Tucker High which showed 75% stenosis in the left main. The LAD had a 50% stenosis in the mid portion of the artery. The left circ was a large system with a 50% stenosis in the mid portion and the RCA had a high-grade stenosis, proximal portion of approximately 90%. EF was 50 to 55%. We were consulted to evaluate for coronary artery bypass grafting to the LAD, circ, and RCA. The patient has had prior cardiac workup. She required back surgery in July [address] Alex in the past, where he worked her up for atrial fibrillation. She has been on Tambocor and Coumadin for her A-fib. She also had an extensive workup for preop evaluation for her back surgery last year by Dr. Alex and was told at that time, everything was clear including a stress test. PAST MEDICAL HISTORY: Significant for: 1. Paroxysmal atrial fibrillation. 2. Anxiety. 3. Degenerative disc disease. 4. Gastroesophageal reflux disease. 5. Scoliosis. 6. Hyperlipidemia. 7. History of lung cancer on the right lower lobe, diagnosed in 2002, that was followed by a right lower lobectomy with radiation and chemotherapy. Then she unfortunately developed cancer on the left lung and also the aorta in 2012, and had radiation and chemotherapy. She has been in remission since 2013, followed again by Dr. Hess. She has had a full repeat workup including CT of the thorax that she had at [facility] which showed some surgical changes in the right and post paramediastinal fibrosis on both sides. No evidence of recurrent or metastatic disease of the chest. Apparently there is a benign appearing left breast mass, unchanged from 2013. She also had a CT of the abdomen and pelvis at that time with no acute findings, some small right pleural effusion, severe atherosclerotic disease. Other history includes: 1. Cardiovascular disease. 2. COPD. PAST SURGICAL HISTORY: 1. Five sections. 2. Tonsillectomy. 3. Fibroid tumors removed. 4. Right lower lobectomy. 5. [id number] placement which has since been removed. 6. Back surgery, L2-L5 at [facility] in July 2015. ALLERGIES: No known allergies. HOME MEDICATIONS: 1. Coreg. 2. Zetia. 3. Omeprazole. 4. Meclizine. 5. Victoza. 6. Vitamins. 7. Zofran 8. Zolderprim. 9. Gabapentin. 10. Zyrtec. 11. Flonase. 12. Hyzaar. 13. Lortab. 14. Flecainide. 15. Coumadin, last dose yesterday at 09/07/2016 16. Oxybutynin. SOCIAL HISTORY: The patient is , has five children. She lives in a duplex with a male roommate. She smokes for approximately 40 years, 2-4 packs per day. She quit ten years ago. She drinks alcohol, 2 to 3 drinks of vodka per day. REVIEW OF SYSTEMS: In general no night sweats, fever, heat and cold intolerance. Skin: No psoriasis, itching or hives. HEENT: No blurred vision, hearing loss. Respiratory: Some shortness of breath with exertion. Cardiovascular: As above in the HPI. Gastrointestinal: She has chronic constipation. No diarrhea. Genitourinary: Some urgency. No burning or frequency. CLINICAL QUALITY RN: No history of TIA, CVA. She does have some history of neuropathy in her lower legs. Endocrinology: She has borderline diabetic with no hypothyroidism. PHYSICAL EXAMINATION: VITAL SIGNS: Blood pressure 117/80, heart rate of 80, afebrile. Patient is awake, alert. She is somewhat anxious, complaining of some pain in her lower back. Head is normocephalic, atraumatic. Pupils equal and reactive. Oral mucosa pink, moist. Neck: Supple. No JVD. Heart sounds S1-S2 regular rate and rhythm. No rubs, murmurs, gallops. Lungs: Diminished in the right lower lobe. She has a well-healed scar posterior lateral chest wall. She has a long scar down her lower back. Abdomen is soft, round, nontender. Extremities: Reveal no cyanosis, clubbing or edema. LABORATORY WORK: Shows hemoglobin of 12, hematocrit 34, white cell count 3, platelet count 182, sodium 138, potassium 3.6, BUN of 10, creatinine 0.64, glucose 118, troponin 0.91, INR 1.7. IMAGING STUDIES: EKG as above. Chest x-ray: Small right pleural effusion, some atelectasis. IMPRESSION This is a 66-year-old female with a non STEMI, status post heart catheterization with multivessel disease, 75% left main, RCA involvement and the circumflex. Cardiac catheterization films have been evaluated by Dr. Maylin Davila. Procedures, alternatives and risks have been discussed with the patient. PLAN: The plan will be for surgery, coronary artery bypass grafting x3 on September 10. In the meantime, will add further testing including carotid ultrasound, vein mapping, recheck her INR in the a.m. Dictated by: JUAN C De Santiago Maylin BRONSON/ERICA /5:51 PM /8:32 AM
== END 2016-09-08 20:00 | disposition left against medical advice (07) | DRG 281 ==
LOC: NEPE 01:55 → NEDA 05:50 → NEPHCDU 08:46 → HCIS 09-08 09:18
PROVIDERS: ADMIT Internal Medicine; ATTEND Internal Medicine
PROC: B2111ZZ Fluoroscopy of Multiple Coronary Arteries using Low Osmolar Contrast (ICD-10-PCS; 2016-09-08)
PROC: B2151ZZ Fluoroscopy of Left Heart using Low Osmolar Contrast (ICD-10-PCS; 2016-09-08)
PROC: 4A023N7 Measurement of Cardiac Sampling and Pressure, Left Heart, Percutaneous Approach (ICD-10-PCS; principal; 2016-09-08 10:00)
DX: I21.4 Non-ST elevation (NSTEMI) myocardial infarction (principal); I42.9 Cardiomyopathy, unspecified; I48.0 Paroxysmal atrial fibrillation; Z79.01 Long term (current) use of anticoagulants; J44.9 Chronic obstructive pulmonary disease, unspecified; I10 Essential (primary) hypertension; E11.9 Type 2 diabetes mellitus without complications; Z79.4 Long term (current) use of insulin; K21.9 Gastro-esophageal reflux disease without esophagitis; I25.10 Atherosclerotic heart disease of native coronary artery without angina pectoris; E78.5 Hyperlipidemia, unspecified; Z85.118 Personal history of other malignant neoplasm of bronchus and lung; Z90.2 Acquired absence of lung [part of]; Z92.3 Personal history of irradiation; Z92.21 Personal history of antineoplastic chemotherapy; N63 Unspecified lump in breast; F41.9 Anxiety disorder, unspecified; G89.29 Other chronic pain; M54.5 Low back pain; Z87.891 Personal history of nicotine dependence
CPT/HCPCS: 71010; 80048; 82550; 82552; 82948; 83735; 84484; 84597; 85007; 85025; 85027; 85610; 85730; 93005; 93458; C1760; C1769; C1887; C1893; G0269; J1170; J1644; J2250; J3010; J7042; Q9967